=== PATIENT | male | born 1980 | race American Indian/Alaskan Native ===

== ENCOUNTER 2018-03-24 21:30 | Emergency (ER) | payer SELFPAY ==
[2018-03-24 21:58] VITALS: BP 141/87
[2018-03-24 22:28] LABS: Hematocrit 44.7 % (35.5-45.6); Mean Corpuscular HGB Conc 34 % (32-34); Mean Corpuscular Hemoglobin 29 pg (28-32); Mean Corpuscular Volume 88 fl (84-94); Platelet Count 215 K/mm3 (140-440); Red Cell Distribution Width 12.9 % (13.2-15.2)
[2018-03-24 22:39] LABS: BUN/Creatinine Ratio 8; Blood Urea Nitrogen 11 mg/dL (9-20); Calcium 9.1 mg/dL (8.4-10.2); Hemolysis Index 15
[2018-03-24 23:03] LABS: Bilirubin,Urine NEG (Negative); Blood,Urine NEG (Negative); Color,Urine Yellow (Yellow); Mucus,Urine FEW /HPF; Protein,Urine <15 mg/dL mg/dL (Negative); Urobilinogen,Urine < 2.0 mg/dL (<2.0)
[2018-03-25] MEDS ORDERED: ULTRAM PO ONE (00:15)
[2018-03-25] MEDS ORDERED: ULTRAM ONE (00:15)
[2018-03-25] MEDS ORDERED: FLEXERIL PO ONE (00:15)
[2018-03-25] MEDS ORDERED: FLEXERIL ONE (00:15)
--- NOTE | 2018-03-25 03:33 | Emergency Department Report ---
- General Chief Complaint: Back Pain/Injury Stated Complaint: BACK PAIN Time Seen by Provider: 03/25/18 02:46 Source: patient Mode of arrival: Ambulatory Limitations: No Limitations - History of Present Illness Initial Comments: Patient states back pain fevers sweats or chillsx 1 week sick child at home with bronchitis, pt symtoms include cough productive yellow green with intermitten sob no wheezing no cp no n/v symptoms are relieved by nothing symptoms exacerbated by activity , Complaint: fever, cough, nasal congestion -: Gradual Severity: moderate Severity scale (0 -10): 5 Quality: sharp, aching Consistency: intermittent Improves With: nothing Worsens With: activity Context: sick contacts Associated Symptoms: fever, chills, rhinorrhea, nasal congestion, cough. denies : shortness of breath, abdominal pain, nausea, vomiting, diarrhea, dysuria (R), rash Treatments Prior to Arrival: none (negative) - Related Data Previous Rx's Medication Instructions Recorded Last Taken Type ALBUTEROL Inhaler(NF) [VENTOLIN 1 puff IH BID PRN #1 inha 03/25/18 Unknown Rx Inhaler(NF)] Azithromycin 250 mg PO DAILY #4 tablet 03/25/18 Unknown Rx Codeine Phosphate/Guaifenesin 5 ml PO TID PRN #120 ml 03/25/18 Unknown Rx [Guaifenesin-Codeine Syrup] Ibuprofen 800 mg PO TID PRN #30 tablet 03/25/18 Unknown Rx predniSONE [Deltasone] 40 mg PO QDAY #10 tab 03/25/18 Unknown Rx Allergies Allergy/AdvReac Type Severity Reaction Status Date / Time No Known Allergies Allergy Unverified 03/24/18 21:57 ED Review of Systems ROS: Stated complaint: BACK PAIN Other details as noted in HPI Constitutional: chills, fever Eyes: denies: eye pain, eye discharge, vision change ENT: throat pain, congestion Respiratory: cough, SOB with exertion, wheezing Cardiovascular: as per HPI. denies: chest pain, palpitations, dyspnea on exertion, edema, syncope, paroxysmal nocturnal dyspnea Endocrine: no symptoms reported Gastrointestinal: denies: abdominal pain, nausea, vomiting, diarrhea Genitourinary: denies: urgency, dysuria Musculoskeletal: denies: back pain, joint swelling, arthralgia Skin: denies: rash, lesions Neurological: denies: headache, weakness, paresthesias Psychiatric: denies: anxiety, depression Hematological/Lymphatic: denies: easy bleeding, easy bruising ED Past Medical Hx - Past Medical History Previous Medical History?: No - Social History Smoking Status: Never Smoker Substance Use Type: Alcohol - Medications Home Medications: Home Medications Medication Instructions Recorded Confirmed Last Taken Type ALBUTEROL Inhaler(NF) [VENTOLIN 1 puff IH BID PRN #1 inha 03/25/18 Unknown Rx Inhaler(NF)] Azithromycin 250 mg PO DAILY #4 tablet 03/25/18 Unknown Rx Codeine Phosphate/Guaifenesin 5 ml PO TID PRN #120 ml 03/25/18 Unknown Rx [Guaifenesin-Codeine Syrup] Ibuprofen 800 mg PO TID PRN #30 tablet 03/25/18 Unknown Rx predniSONE [Deltasone] 40 mg PO QDAY #10 tab 03/25/18 Unknown Rx ED Physical Exam - General Limitations: No Limitations General appearance: alert, in no apparent distress - Head Head exam: Present: atraumatic, normocephalic - Eye Eye exam: Present: normal appearance, PERRL, EOMI Pupils: Present: normal accommodation - ENT ENT exam: Present: TM's normal bilaterally - Expanded ENT Exam Expanded Ear exam: Present: normal external inspection Teeth exam: Present: dental caries Throat exam: Positive: normal inspection. Negative: tonsillomegaly, tonsillar exudate, R peritonsillar mass, L peritonsillar mass - Neck Neck exam: Present: normal inspection, tenderness, full ROM. Absent: lymphadenopathy, thyromegaly - Respiratory Respiratory exam: Present: normal lung sounds bilaterally, chest wall tenderness. Absent: respiratory distress, wheezes, stridor - Cardiovascular Cardiovascular Exam: Present: regular rate, normal rhythm, normal heart sounds - GI/Abdominal GI/Abdominal exam: Present: soft, normal bowel sounds. Absent: tenderness, bruit, hernia - Rectal Rectal exam: Present: deferred - Extremities Exam Extremities exam: Present: normal inspection - Back Exam Back exam: Present: normal inspection - Neurological Exam Neurological exam: Present: alert, oriented X3, CN II-XII intact, normal gait, reflexes normal. Absent: motor sensory deficit - Psychiatric Psychiatric exam: Present: normal affect, normal mood - Skin Skin exam: Present: warm, dry, intact, normal color. Absent: rash ED Course Vital Signs 03/24/18 03/24/18 21:39 21:54 Temperature 100.1 F H 100.1 F H Pulse Rate 90 89 Respiratory 18 18 Rate Blood Pressure 141/87 141/87 O2 Sat by Pulse 99 99 Oximetry ED Medical Decision Making - Lab Data Result diagrams: 03/24/18 22:07 03/24/18 22:07 - Radiology Data Radiology results: image reviewed no opacities no infiltrates - Medical Decision Making This is likely bronchitis plan Z-Miguel A DC'd home with albuterol and prednisone burst cheratussin Cough ibuprofen for pain patient verbalizes understanding and agreement with same be DC'd home stable condition at this time follow up with [facility] Critical care attestation.: If time is entered above; I have spent that time in minutes in the direct care of this critically ill patient, excluding procedure time. ED Disposition Clinical Impression: Bronchitis, URTI (acute upper respiratory infection) Disposition: DC-01 TO HOME OR SELFCARE Is pt being admited?: No Does the pt Need Aspirin: No Condition: Poor Instructions: Acute Bronchitis (ED) Prescriptions: ALBUTEROL Inhaler(NF) [VENTOLIN Inhaler(NF)] 1 puff IH BID PRN #1 inha PRN Reason: Wheezing Azithromycin 250 mg PO DAILY #4 tablet Codeine Phosphate/Guaifenesin [Guaifenesin-Codeine Syrup] 5 ml PO TID PRN #120 ml PRN Reason: Cough Ibuprofen 800 mg PO TID PRN #30 tablet PRN Reason: pain fever predniSONE [Deltasone] 40 mg PO QDAY #10 tab Referrals: PRIMARY CARE, [Primary Care Provider] - 3-5 Days Forms: Work/School Release Form(ED) Time of Disposition: 03:49
[2018-03-25] MEDS ORDERED: DELTASONE PO ONE (03:38)
[2018-03-25] MEDS ORDERED: ZITHROMAX PO ONE (03:38)
[2018-03-25] MEDS ORDERED: MOTRIN PO ONE (03:38)
--- NOTE | 2018-03-25 03:52 | XRay Report ---
FINAL REPORT PROCEDURE: XR CHEST ROUTINE 2V TECHNIQUE: PA and lateral chest radiographs were obtained. CPT 78851 HISTORY: cough productive green COMPARISON: No prior studies are available for comparison. FINDINGS: Heart: Normal. Mediastinum/Vessels: Normal. Lungs/Pleural space: Normal. Bony thorax: No acute osseous abnormality. Other: IMPRESSION: Normal examination.
== END 2018-03-25 04:05 | disposition home or self-care (01) ==
LOC: EDSEX → ED 21:30
DX: J40 Bronchitis, not specified as acute or chronic (principal); J06.9 Acute upper respiratory infection, unspecified
CPT/HCPCS: 36415; 71046; 80048; 81001; 85027; 99284; J7512